=== PATIENT | male | born 1960 | race Caucasian/White ===

== ENCOUNTER → 2018-09-08 12:15 | Emergency (ER) | payer BC ==
[2018-09-08] MEDS: LABETALOL HCL 100 MG/20 ML VIAL IV ×3 (11:39→12:08)
[2018-09-08 11:46] LABS: BASO % 0.5 % (0.0-1.0); EOS # 0.2 10^3/uL (0.0-0.50); EOS % 2.3 % (0.0-3.0); HEMATOCRIT 39.7 % (42.0-52.0); HEMOGLOBIN 13.7 g/dl (13.5-17.5); IMMATURE GRANULOCYTE % 0.4 % (0-3.0); LYMPH # 1.4 10^3/uL (1.5-4.5); LYMPH % 18.5 % (24.0-44.0); MEAN CORPUSCULAR HEMOGLOBIN 34.5 pg (27.0-33.0); MEAN CORPUSCULAR HGB CONC 34.5 g/dl (32.0-36.5); MONO # 0.9 10^3/uL (0.0-0.8); MONO % 12.2 % (0.0-5.0); NEUTROPHILS # 4.8 10^3/uL (1.8-7.7); NEUTROPHILS % 66.1 % (36.0-66.0); PLATELET COUNT, AUTOMATED 178 10^3/uL (150-450); RED BLOOD COUNT 3.97 10^6/uL (4.30-6.10); RED CELL DISTRIBUTION WIDTH 12.2 % (11.5-14.5); WHITE BLOOD COUNT 7.3 10^3/uL (4.0-10.0)
[2018-09-08 11:48] LABS: BEDSIDE GLUCOSE 86 MG/DL (70-105)
[2018-09-08 11:57] LABS: INR 0.94; PROTHROMBIN TIME 12.6 SECONDS (12.1-14.4)
[2018-09-08 11:58] LABS: PARTIAL THROMBOPLASTIN TIME 27.1 SECONDS (25.4-37.6)
[2018-09-08 12:12] LABS: ANION GAP 6 MEQ/L (8-16); BLOOD UREA NITROGEN 23 MG/DL (7-18); CALCIUM LEVEL 9.1 MG/DL (8.5-10.1); CARBON DIOXIDE LEVEL 29 MEQ/L (21-32); CHLORIDE LEVEL 105 MEQ/L (98-107); CPK CREATINE PHOSPHOKINASE 80 U/L (39-308); CREATININE FOR GFR 1.18 MG/DL (0.70-1.30); GLOMERULAR FILTRATION RATE > 60.0 (>56); GLUCOSE, FASTING 88 MG/DL (70-100); MB/CK RELATIVE INDEX 2.25 (< OR =4); POTASSIUM SERUM 4.4 MEQ/L (3.5-5.1); SODIUM LEVEL 140 MEQ/L (136-145); TROPONIN I < 0.02 NG/ML (< 0.10)
== END | disposition short-term general hospital (02) ==
LOC: M ED 12:15
DX: I62.9 Nontraumatic intracranial hemorrhage, unspecified (principal); I10 Essential (primary) hypertension; Z79.899 Other long term (current) drug therapy; F17.210 Nicotine dependence, cigarettes, uncomplicated
CPT/HCPCS: 71045

== ENCOUNTER → 2018-10-04 | Outpatient (REF) | payer BC | LOC: M LAB REF 18:03 | DX: C44.329 Squamous cell carcinoma of skin of other parts of face (principal); C44.619 Basal cell carcinoma of skin of left upper limb, including shoulder; D04.39 Carcinoma in situ of skin of other parts of face | CPT/HCPCS: 88305 ==

== ENCOUNTER → 2018-10-18 | Outpatient (CLI) | payer BC | LOC: M PLARAD 10:15 | DX: R22.0 Localized swelling, mass and lump, head (principal) | CPT/HCPCS: 78816 ==

== ENCOUNTER 2018-10-26 08:26 | Day surgery (SDC) | payer BC ==
[~2018-10-26] VITALS: Ht 182.9 cm; Wt 107.5 kg
[~2018-10-26 08:26] MED LIST: AMLO10TA4 PO; ATOR40TA75 PO; GARL10CA2 PO; HYDR25OIN TOP; HYDR25TAB PO; IBUP200T45 PO; KETO2CR TOP; LISI-538 PO; MULT1TAB10 PO; NICO21DI31 TOP; NS 1,000 ML IV ONE; PANT40TA3 PO; PRIL20TA2 PO; VITA-176 PO; [UNRECOGNIZED DRUG - CODE] PO; beet root
--- NOTE | 2018-10-26 09:57 | ROOR ---
Patient Name: Juan Francisco Roa Procedure Date: 10/26/2018 9:29 AM Date of : 1960 Age: 58 Room: [facility] Gender: Male Note Status: Finalized Procedure: Colonoscopy Indications: Screening for colorectal malignant neoplasm Providers: Keon To DO Referring MD: Nathalie Barragan DO Requesting Provider: Medicines: Propofol per Anesthesia Complications: No immediate complications. Procedure: Pre-Anesthesia Assessment: - Prior to the procedure, a History and Physical was performed, and patient medications and allergies were reviewed. The patient is competent. The risks and benefits of the procedure and the sedation options and risks were discussed with the patient. All questions were answered and informed consent was obtained. Patient identification and proposed procedure were verified by the physician, the nurse, the anesthesiologist and the senior pharmacy technician in the endoscopy suite. Mental Status Examination: alert and oriented. Airway Examination: normal oropharyngeal airway and neck mobility. Respiratory Examination: clear to auscultation. CV Examination: normal. Prophylactic Antibiotics: The patient does not require prophylactic antibiotics. Prior Anticoagulants: The patient has taken no previous anticoagulant or antiplatelet agents. ASA Grade Assessment: II - A patient with mild systemic disease. After reviewing the risks and benefits, the patient was deemed in satisfactory condition to undergo the procedure. The anesthesia plan was to use monitored anesthesia care (MAC). Immediately prior to administration of medications, the patient was re-assessed for adequacy to receive sedatives. The heart rate, respiratory rate, oxygen saturations, blood pressure, adequacy of pulmonary ventilation, and response to care were monitored throughout the procedure. The physical status of the patient was re-assessed after the procedure. The Colonoscope was introduced through the anus and advanced to the cecum, identified by appendiceal orifice and ileocecal valve. The colonoscopy was performed without difficulty. The patient tolerated the procedure well. Findings: The perianal exam findings include non-thrombosed internal hemorrhoids and internal hemorrhoids that prolapse with straining, but spontaneously regress to the resting position (Grade II). Four hyperplastic polyps were found in the sigmoid colon, descending colon and cecum. The polyps were less than 5 mm in size. These polyps were removed with a jumbo cold forceps. Resection and retrieval were complete. Estimated blood loss was minimal. The exam was otherwise without abnormality on direct and retroflexion views. Impression: - Non-thrombosed internal hemorrhoids and internal hemorrhoids that prolapse with straining, but spontaneously regress to the resting position (Grade II) found on perianal exam. - Four less than 5 mm polyps in the sigmoid colon, in the descending colon and in the cecum, removed with a jumbo cold forceps. Resected and retrieved. - The examination was otherwise normal on direct and retroflexion views. Recommendation: - Patient has a contact number available for emergencies. The signs and symptoms of potential delayed complications were discussed with the patient. Return to normal activities tomorrow. Written discharge instructions were provided to the patient. - Telephone my office for pathology results in 1 week. - Return to my office PRN. - Repeat colonoscopy in 5-10 years for surveillance based on pathology results. Keon To DO 10/26/2018 9:56:42 AM This report has been signed electronically. Number of Addenda: 0 Note Initiated On: 10/26/2018 9:29 AM Estimated Blood Loss: Estimated blood loss was minimal.
[2018-10-26 10:21] VITALS: BP 149/88
== END 2018-10-26 10:32 | disposition home or self-care (01) ==
LOC: M OPP 08:26
PROVIDERS: ATTEND Surgery
DX: Z12.11 Encounter for screening for malignant neoplasm of colon (principal); K64.1 Second degree hemorrhoids; K63.5 Polyp of colon; D12.4 Benign neoplasm of descending colon; D12.0 Benign neoplasm of cecum; I10 Essential (primary) hypertension; E78.00 Pure hypercholesterolemia, unspecified; R90.0 Intracranial space-occupying lesion found on diagnostic imaging of central nervous system; R59.9 Enlarged lymph nodes, unspecified; M54.9 Dorsalgia, unspecified; Z79.899 Other long term (current) drug therapy; Z86.73 Personal history of transient ischemic attack (TIA), and cerebral infarction without residual deficits; Z85.828 Personal history of other malignant neoplasm of skin

== ENCOUNTER → 2018-11-01 | Outpatient (REF) | payer BC ==
[~2018-11-01] MED LIST changes: -NS 1,000 ML IV ONE
== END ==
LOC: M SFHCPLAZ 11:54
PROVIDERS: ATTEND Dermatology
DX: C44.301 Unspecified malignant neoplasm of skin of nose (principal); C44.509 Unspecified malignant neoplasm of skin of other part of trunk; C44.602 Unspecified malignant neoplasm of skin of right upper limb, including shoulder

== ENCOUNTER → 2018-11-22 | Outpatient (CLI) | payer BC ==
[~2018-11-22] MED LIST changes: -AMLO10TA4 PO; +AMLO10TA5 PO; +PROHANCE 279.3MG/ML 15ML VIAL (A9576) As Ordered ONE; +PROHANCE 279.3MG/ML 5ML VIAL (A9576) As Ordered ONE
--- NOTE | 2018-11-22 11:57 | REP ---
MR BRAIN WITHOUT AND WITH CONTRAST: HISTORY: Brain hemorrhage. COMPARISON: CT 09/08/2018. A small focus of mixed decreased and increased signal intensity on T1 and T2-weighted images is present in the posterior right parietal lobe. This represents hemosiderin and methemoglobin secondary to a small intraparenchymal hematoma. There is no surrounding edema or mass effect. Scattered punctate areas of increased signal intensity on T2-weighted images are present in the periventricular and subcortical white matter. This represents small vessel ischemic disease. There is no acute intraparenchymal hemorrhage, infarct, mass, or midline shift. A 7 mm pineal cyst is present. There is no abnormal enhancement. The ventricular system and cortical sulci are dilated consistent with minimal volume loss. There is no extracerebral collection. Minimal mucosal thickening is present in the maxillary sinuses. There is a defect in the soft tissue overlying the right frontal bone. IMPRESSION: 1. Old small right parietal lobe intraparenchymal hematoma. 2. Small vessel ischemic disease. 3. Minimal volume loss. Electronically Signed by Justin Hoskins MD 11/22/2018 11:58 A
== END ==
LOC: M RAD 08:48
PROVIDERS: ATTEND Internal Medicine Medical Oncology
DX: I61.9 Nontraumatic intracerebral hemorrhage, unspecified (principal); I67.82 Cerebral ischemia; R22.0 Localized swelling, mass and lump, head
CPT/HCPCS: 70553; A9576

== ENCOUNTER → 2019-01-17 | Outpatient (REF) | payer BC ==
[~2019-01-17] MED LIST changes: -PROHANCE 279.3MG/ML 15ML VIAL (A9576) As Ordered ONE; -PROHANCE 279.3MG/ML 5ML VIAL (A9576) As Ordered ONE
== END ==
LOC: M SFHCPLAZ 17:22
PROVIDERS: ATTEND Dermatology
DX: C44.619 Basal cell carcinoma of skin of left upper limb, including shoulder (principal); D04.62 Carcinoma in situ of skin of left upper limb, including shoulder

== ENCOUNTER → 2019-01-31 | Outpatient (REF) | payer BC | LOC: M SFHCPLAZ 17:50 | PROVIDERS: ATTEND Dermatology | DX: C44.612 Basal cell carcinoma of skin of right upper limb, including shoulder (principal); C44.529 Squamous cell carcinoma of skin of other part of trunk; L82.1 Other seborrheic keratosis ==

== ENCOUNTER → 2019-02-28 | Outpatient (REF) | payer BC | LOC: M SFHCPLAZ 17:50 | PROVIDERS: ATTEND Dermatology | DX: D48.5 Neoplasm of uncertain behavior of skin (principal) ==

== ENCOUNTER 2020-01-09 10:26 | Emergency (ER) | payer OTHER, BC, MEDICAID ==
[~2020-01-09] VITALS: Ht 182.9 cm; Wt 112.5 kg
[2020-01-09] MEDS ORDERED: HYDR-3363 (10:36)
--- NOTE | 2020-01-09 11:02 | REP ---
Left hand series: Four views. History: Crush injury left hand. Findings: Four views left hand demonstrate a dressing overlying the long finger. There is mild spurring at the 3rd MCP articulation. There is some osteoarthritic spurring at the DIP joints of the long and small fingers. No fracture is seen. No opaque foreign body is noted. There is some clothing artifact at the wrist. Impression: Osteoarthritic changes. Soft tissue swelling about the long finger. No fracture or opaque foreign body seen. Electronically Signed by Ramesh Lovelace MD 01/09/2020 10:53 A
[2020-01-09] MEDS ORDERED: IBUPROFEN 800 MG TAB PO ONE (11:45)
[2020-01-09] MEDS ORDERED: ADACEL/BOOSTRIX VACCINE (DIPHTH/PERTUSS/ACELL/TETANUS)0.5ML SYR (90715) IM ONE (11:45)
[2020-01-09 12:20] VITALS: BP 130/76
== END 2020-01-09 12:20 | disposition home or self-care (01) ==
LOC: M ED 10:26
DX: S67.191A Crushing injury of left index finger, initial encounter (principal); S67.193A Crushing injury of left middle finger, initial encounter; W23.0XXA Caught, crushed, jammed, or pinched between moving objects, initial encounter; Y92.59 Other trade areas as the place of occurrence of the external cause; Y93.89 Activity, other specified; Y99.8 Other external cause status; E78.5 Hyperlipidemia, unspecified; K21.9 Gastro-esophageal reflux disease without esophagitis; F17.210 Nicotine dependence, cigarettes, uncomplicated; Z79.899 Other long term (current) drug therapy

== ENCOUNTER → 2020-07-31 | Outpatient (REF) | payer OTHER, BC, MEDICAID ==
[~2020-07-31] MED LIST changes: -AMLO10TA5 PO; +AMLO1TAB25 PO; +HYDR-3363; +PANT40TA29 PO; -PANT40TA3 PO
== END ==
LOC: M LAB REF 09:16
PROVIDERS: ATTEND Dermatology
DX: C44.622 Squamous cell carcinoma of skin of right upper limb, including shoulder (principal)

== ENCOUNTER → 2020-12-18 | Outpatient (REF) | payer BC, MEDICAID, OTHER ==
[~2020-12-18] MED LIST changes: +HYDR-3490 PO; -HYDR25TAB PO; -LISI-538 PO; +LISI20TA33 PO; +NICO1DIS12 TOP; -NICO21DI31 TOP
== END ==
LOC: M LAB REF 18:46
PROVIDERS: ATTEND Physician Assistant
DX: C44.519 Basal cell carcinoma of skin of other part of trunk (principal)

== ENCOUNTER → 2020-12-30 | Outpatient (CLI) | payer OTHER ==
--- NOTE | 2021-01-01 10:12 | SLEEPCENT ---
NOCTURNAL POLYSOMNOGRAPHY DATE: 12/30/2020 ORDERED BY: FRANK Kang Nocturnal polysomnography was performed for evaluation of sleep physiology in this patient with a history of excessive somnolence and nonrestorative sleep. 8 hours and 5 minutes of data were reviewed. There were 345 minutes of sleep identified. Sleep latency was prolonged at 23 minutes. REM latency was short at 7.5 minutes. Sleep architecture showed fragmentation and overall sleep efficiency was 72.1%. The electrocardiogram showed a sinus rhythm with an average heart rate of 80 beats per minute. EEG showed normal waveforms for wake and sleep. There were 125 respiratory events identified of 10 seconds in duration or greater for an apnea-hypopnea index of 21.7. The events were associated with oxygen desaturations into the low 80s. Having clearly identified the obstructive sleep apnea syndrome early in testing, the study was stopped shortly before midnight for the application of pressure therapy. The patient was fit with a ResMed AirFit F20 full face mask of large size, 4 cm of water pressure was applied to the circuit and the lights were again extinguished. For the remaining hours of testing pressure titration was performed. The patient's sleep architecture improved substantially. Optimal CPAP pressure was 11 cm with which, the patient slept through REM without respiratory event or oxygen desaturations. IMPRESSION: Obstructive sleep apnea syndrome (G47.33), apnea-hypopnea index 21.7. RECOMMENDATION: Nightly use of pressure therapy 11 cm of water.
== END ==
LOC: M SLEEP 20:00
PROVIDERS: ATTEND Nurse Practitioner Family
DX: G47.33 Obstructive sleep apnea (adult) (pediatric) (principal)

== ENCOUNTER → 2021-04-15 | Outpatient (REF) | payer OTHER ==
[2021-04-15 12:49] LABS: BASO % 0.5 % (0.0-1.0); EOS # 0.1 10^3/uL (0.0-0.5); EOS % 1.4 % (0.0-3.0); HEMATOCRIT 36.5 % (42.0-52.0); HEMOGLOBIN 12.2 g/dl (13.5-17.5); LYMPH # 1.4 10^3/uL (1.5-5.0); LYMPH % 18.9 % (24.0-44.0); MEAN CORPUSCULAR HEMOGLOBIN 31.8 pg (27.0-33.0); MEAN CORPUSCULAR HGB CONC 33.4 g/dl (32.0-36.5); MEAN CORPUSCULAR VOLUME 95.1 fl (80.0-96.0); NEUTROPHILS # 4.9 10^3/uL (1.5-8.5); NEUTROPHILS % 65.7 % (36.0-66.0); PLATELET COUNT, AUTOMATED 296 10^3/uL (150-450); RED BLOOD COUNT 3.84 10^6/uL (4.30-6.10); WHITE BLOOD COUNT 7.4 10^3/uL (4.0-10.0)
[2021-04-15 13:17] LABS: BILIRUBIN,TOTAL 0.5 MG/DL (0.2-1.0); CALCIUM LEVEL 9.1 MG/DL (8.5-10.1); CHOLESTEROL RISK RATIO 2.234 (<5); CREATININE FOR GFR 1.33 MG/DL (0.70-1.30); GLOMERULAR FILTRATION RATE 58.6 (>56); POTASSIUM SERUM 4.4 MEQ/L (3.5-5.1); TOTAL PROTEIN 7.4 GM/DL (6.4-8.2)
== END ==
LOC: M SFHCADAM 08:16
PROVIDERS: ATTEND Family Medicine
DX: Z00.00 Encounter for general adult medical examination without abnormal findings (principal)

== ENCOUNTER → 2021-05-15 | Outpatient (CLI) | payer OTHER ==
--- NOTE | 2021-05-15 14:03 | REP ---
INDICATION: WHEEZE COMPARISON: 09/08/2018 TECHNIQUE: PA and lateral. FINDINGS: The mediastinum and cardiac silhouette are normal. The lung subramanian are clear and without acute consolidation, effusion, or pneumothorax. The skeletal structures are intact and normal. IMPRESSION: No acute cardiopulmonary process. <Electronically signed by Brent Islas > 05/15/21 [id number]
--- NOTE | 2021-05-15 14:06 | REP ---
INDICATION: LOW BACK PAIN. COMPARISON: None. FINDINGS: There is mild posterior disc space narrowing at every level. There is a mild grade 1 superior and plate anterior compression deformity involving L1. There is a minimal grade 1 L4 upon L5 spondylolisthesis. Hypertrophic degenerative facet joint changes are present at every level bilaterally particularly L4-5 L5-S1. There is no evidence of spondylolysis. The pedicles are intact bilaterally. There is left-sided marginal osteophytosis seen at the L3-4 level. Rather advanced degenerative changes are seen involving the imaged portion of the thoracic spine. IMPRESSION: Chronic changes as described above. <Electronically signed by Kt Schumacher > 05/15/21 [id number]
== END ==
LOC: M ADAMS 13:35
PROVIDERS: ATTEND Family Medicine
DX: R06.2 Wheezing (principal); M54.5 Low back pain

== ENCOUNTER → 2021-08-20 | Outpatient (REF) | payer OTHER | LOC: M LAB REF 17:25 | PROVIDERS: ATTEND Internal Medicine Nephrology | DX: N18.31 Chronic kidney disease, stage 3a (principal); E83.42 Hypomagnesemia ==

== ENCOUNTER → 2021-08-21 | Outpatient (CLI) | payer OTHER ==
[~2021-08-21] MED LIST changes: +ISOVUE-370 76% 100ML VIAL As Ordered ONE
--- NOTE | 2021-08-21 09:05 | REPVR ---
PROCEDURE INFORMATION: Exam: CT Neck With Contrast Exam date and time: 08/21/2021 8:39 AM Age: 61 years old Clinical indication: Pain; Other: Swelling; Additional info: Localized swelling PT has CT 1st and US 2nd TECHNIQUE: Imaging protocol: Computed tomography images of the neck with contrast. Radiation optimization: All CT scans at this facility use at least one of these dose optimization techniques: automated exposure control; mA and/or kV adjustment per patient size (includes targeted exams where dose is matched to clinical indication); or iterative reconstruction. Contrast material: ISOVUE 370; Contrast volume: 50 ml; Contrast route: INTRAVENOUS (IV); COMPARISON: PT PET/CT Whole body 10/18/2018 11:55 AM FINDINGS: Brain: Diffuse involutional changes in the brain for age. Nasopharynx: Unremarkable. Dental: There are multiple missing, carious, and broken teeth with some periapical lucencies. Dental consult is recommended. Oropharynx: Unremarkable. No significant tonsillar enlargement. Hypopharynx: Unremarkable. Larynx: Unremarkable. Normal epiglottis. Retropharyngeal space: Unremarkable. Submandibular/Parotid glands: Normal. Glands are normal in size. Thyroid: No thyroid lesion. Lymph nodes: No confluent lymphadenopathy. Trachea: Visualized trachea is unremarkable. Lungs: The included lungs are clear. Bones/joints: Age-appropriate degenerative changes along the spine without acute fracture. Vasculature: Atherosclerotic changes of the carotids are mildly advanced for age and ultrasound follow-up is recommended. No venous thrombus. Soft tissues: No focal soft tissue swelling. IMPRESSION: 1. No dominant mass or confluent lymphadenopathy. 2. No focal soft tissue swelling. Electronically signed by: Kirby Cruz On 08/21/2021 09:05:32 AM
--- NOTE | 2021-08-21 09:38 | REP ---
INDICATION: LOCALIZED SWELLING PT HAS CT 1ST AND US 2ND COMPARISON: None TECHNIQUE: Axial contrast enhanced images from the thoracic inlet to the upper abdomen with coronal and sagittal reformations using 100 ml Isovue 370 intravenous contrast material. This CT examination was performed using the following dose reduction techniques: Automated exposure control, adjustment of mA and/or kv according to the patient's size, and use of iterative reconstruction technique. FINDINGS: The lung subramanian are well aerated and demonstrate scattered chronic interstitial changes along with multiple partially calcified mediastinal and bilateral hilar lymph nodes suggesting prior granulomatous disease. No acute consolidation, suspicious nodule or mass. No effusion. No pneumothorax. Tracheobronchial tree is patent. No acute adenopathy. Further evaluation of the mediastinum demonstrates atherosclerotic changes to the thoracic aorta and coronary arteries without aortic aneurysm or dissection. No cardiomegaly or pericardial effusion. Surrounding musculoskeletal structures without acute osseous abnormality. Limited upper abdomen demonstrates known complete atrophy to the right kidney. IMPRESSION: Chronic changes likely related to prior granulomatous disease. No acute mediastinal or pleuroparenchymal process appreciated. <Electronically signed by Brent Islas > 08/21/21 0913
--- NOTE | 2021-08-21 09:56 | REP ---
INDICATION: CHRONIC KIDNEY DISEASE STAGE 3A CT 1ST US 2ND COMPARISON: None TECHNIQUE: Real time barriga scale ultrasound examination using curved array transducer followed by color Doppler evaluation of the renal vasculature. FINDINGS: Right kidney is not visualized and consistent with complete atrophic changes as identified on CT dated 08/21/21. Left kidney is enlarged and otherwise normal in appearance without hydronephrosis measuring 16.9 x 5.0 x 5.1 cm. Color Doppler evaluation. Peak aortic velocity: 91.6 cm/sec LEFT KIDNEY Renal arterial velocity: 117.1 centimeters/second Renal-aortic ratio: 1.3 Intrarenal resistive indices: 0.70-0.75 Intrarenal acceleration times: 0.025-0.039 IMPRESSION: 1. Left kidney appears relatively normal. 2. Doppler interegation without sonographic evidence for renal arterial stenosis. <Electronically signed by Brent Islas > 08/21/21 0952
== END ==
LOC: M RAD 08:10
PROVIDERS: ATTEND Internal Medicine Nephrology
DX: I15.0 Renovascular hypertension (principal); R22.1 Localized swelling, mass and lump, neck; J44.9 Chronic obstructive pulmonary disease, unspecified; I70.1 Atherosclerosis of renal artery
CPT/HCPCS: 70491; 71260; 76775; 93975; Q9967

== ENCOUNTER → 2022-02-12 | Outpatient (REF) | payer OTHER ==
[~2022-02-12] MED LIST changes: -ISOVUE-370 76% 100ML VIAL As Ordered ONE
== END ==
LOC: M SFHCDERM 14:14
PROVIDERS: ATTEND Physician Assistant
DX: C44.622 Squamous cell carcinoma of skin of right upper limb, including shoulder (principal)

== ENCOUNTER → 2022-05-07 | Outpatient (REF) | payer OTHER | LOC: M SFHCDERM 19:08 | PROVIDERS: ATTEND Physician Assistant | DX: L90.5 Scar conditions and fibrosis of skin (principal) ==

== ENCOUNTER → 2022-09-17 | Outpatient (REF) | payer OTHER ==
[2022-09-17 13:36] LABS: BASO % 0.6 % (0.0-1.0); EOS # 0.1 10^3/uL (0.0-0.5); EOS % 2.2 % (0.0-3.0); HEMATOCRIT 42.9 % (42.0-52.0); HEMOGLOBIN 14.3 g/dl (13.5-17.5); LYMPH # 1.9 10^3/uL (1.5-5.0); LYMPH % 35.3 % (24.0-44.0); MEAN CORPUSCULAR HEMOGLOBIN 34.2 pg (27.0-33.0); MEAN CORPUSCULAR HGB CONC 33.3 g/dl (32.0-36.5); MEAN CORPUSCULAR VOLUME 102.6 fl (80.0-96.0); MONO # 0.7 10^3/uL (0.0-0.8); MONO % 12.7 % (2.0-8.0); NEUTROPHILS # 2.6 10^3/uL (1.5-8.5); NEUTROPHILS % 48.5 % (36.0-66.0); PLATELET COUNT, AUTOMATED 203 10^3/uL (150-450); RED BLOOD COUNT 4.18 10^6/uL (4.30-6.10); WHITE BLOOD COUNT 5.4 10^3/uL (4.0-10.0)
[2022-09-17 14:31] LABS: ALBUMIN 3.5 GM/DL (3.2-5.2); ALT/SGPT 29 U/L (12-78); BILIRUBIN,TOTAL 0.3 MG/DL (0.2-1.0); BLOOD UREA NITROGEN 27 MG/DL (7-18); CALCIUM LEVEL 8.6 MG/DL (8.8-10.2); CARBON DIOXIDE LEVEL 29 MEQ/L (21-32); CHLORIDE LEVEL 104 MEQ/L (98-107); CHOLESTEROL LEVEL 210 MG/DL (<200); CREATININE FOR GFR 1.18 MG/DL (0.70-1.30); FREE T4 0.93 NG/DL (0.76-1.46); GLOMERULAR FILTRATION RATE > 60.0 (>49); GLUCOSE, FASTING 84 MG/DL (70-100); HDL CHOLESTEROL 85 MG/DL (>40); LDL CHOLESTEROL 94 MG/DL (<100); NON-HDL-C 125 MG/DL; POTASSIUM SERUM 4.5 MEQ/L (3.5-5.1); SODIUM LEVEL 141 MEQ/L (136-145); THYROID STIMULATING HORMONE 0.762 uIU/ML (0.358-3.740); TRIGLYCERIDES LEVEL 154 MG/DL (<150)
== END ==
LOC: M SFHCADAM 08:40
PROVIDERS: ATTEND Family Medicine
DX: Z00.00 Encounter for general adult medical examination without abnormal findings (principal)

== ENCOUNTER 2023-06-12 04:29 | Emergency (ER) | payer MEDICAID, OTHER ==
[~2023-06-12] VITALS: Ht 182.9 cm; Wt 109.6 kg
[2023-06-12 06:08] LABS: BASO % 0.3 % (0.0-1.0); HEMATOCRIT 38.2 % (42.0-52.0); LYMPH % 16.7 % (24.0-44.0); MEAN CORPUSCULAR HEMOGLOBIN 33.2 pg (27.0-33.0); MEAN CORPUSCULAR VOLUME 97.7 fl (80.0-96.0); MONO # 1.2 10^3/uL (0.0-0.8); MONO % 20.7 % (2.0-8.0); NEUTROPHILS # 3.7 10^3/uL (1.5-8.5); PLATELET COUNT, AUTOMATED 166 10^3/uL (150-450); RED BLOOD COUNT 3.91 10^6/uL (4.30-6.10)
[2023-06-12] MEDS ORDERED: ISOVUE-370 76% 100ML VIAL As Ordered ONE (06:12)
[2023-06-12 07:09] LABS: CK-MB VALUE MASS < 1.0 NG/ML (<3.6)
[2023-06-12 07:11] LABS: BLOOD UREA NITROGEN 22 MG/DL (9-23); CALCIUM LEVEL 8.3 MG/DL (8.3-10.6); CARBON DIOXIDE LEVEL 27 MMOL/L (20-31); CHLORIDE LEVEL 95 MMOL/L (98-107); CREATININE FOR GFR 1.14 MG/DL (0.70-1.30); GLOMERULAR FILTRATION RATE > 60.0 (>49); GLUCOSE, FASTING 98 MG/DL (74-106); INR 0.91; POTASSIUM SERUM 3.8 MMOL/L (3.5-5.1); PROTHROMBIN TIME 12.4 SECONDS (12.5-14.5); SODIUM LEVEL 133 MMOL/L (136-145)
[2023-06-12 07:12] LABS: PARTIAL THROMBOPLASTIN TIME 25.6 SECONDS (24.8-34.2)
[2023-06-12 07:13] LABS: CPK CREATINE PHOSPHOKINASE 40 U/L (46-171)
[2023-06-12 07:14] VITALS: TEMP 99.7
[2023-06-12] MEDS ORDERED: ACETAMINOPHEN 325 MG TAB PO ONE (07:55)
[2023-06-12] MEDS ORDERED: METOPROLOL TART 50 MG TAB PO ONE (07:55)
[2023-06-12 09:06] VITALS: BP 164/90
[2023-06-12] MEDS ORDERED: NORT10CA2 PO ×2 (13:58→14:18)
[2023-06-12 14:00] VITALS: BP 141/71
[2023-06-12 14:15] VITALS: O2SAT 97
[2023-06-12 14:32] LABS: C REACTIVE PROTEIN QUANTITATIV 0.8 MG/DL (<1.0)
== END 2023-06-12 14:46 | disposition home or self-care (01) ==
LOC: M ED 04:29
DX: H55.09 Other forms of nystagmus (principal); I67.1 Cerebral aneurysm, nonruptured; I10 Essential (primary) hypertension; K21.9 Gastro-esophageal reflux disease without esophagitis
CPT/HCPCS: 36415; 70450; 70496; 70498; 70544; 70551; 71045; 80047; 80048; 82525; 82550; 82553; 82607; 84155; 84165; 84425; 85025; 85610; 85730; 86140; 93005; 93041; 94760; 99285; Q9967

== ENCOUNTER 2023-09-19 05:09 | Emergency (ER) | payer OTHER ==
[~2023-09-19] VITALS: Ht 182.9 cm; Wt 109.1 kg
[~2023-09-19 05:09] MED LIST changes: +NORT10CA2 PO
[2023-09-19] MEDS ORDERED: ACETAMINOPHEN *IV* 1,000 MG in IV 1 EA IV ONE (06:20)
[2023-09-19] MEDS ORDERED: NS 1,000 ML IV ONE (06:20)
[2023-09-19] MEDS ORDERED: METOCLOPRAMIDE INJ 10MG/2ML VIAL IV ONE (06:20)
[2023-09-19] MEDS ORDERED: METO50TA7 (08:54)
[2023-09-19 08:57] VITALS: BP 146/94; TEMP 97.2; O2SAT 97
== END 2023-09-19 09:13 | disposition home or self-care (01) ==
LOC: EDBD 05:09 → M ED 05:09
DX: S09.90XA Unspecified injury of head, initial encounter (principal); V47.6XXA Car passenger injured in collision with fixed or stationary object in traffic accident, initial encounter; I10 Essential (primary) hypertension; E78.5 Hyperlipidemia, unspecified; Z86.73 Personal history of transient ischemic attack (TIA), and cerebral infarction without residual deficits; K21.9 Gastro-esophageal reflux disease without esophagitis; F40.240 Claustrophobia; Z79.899 Other long term (current) drug therapy
CPT/HCPCS: 70450; 72125; 96361; 96365; 96366; 96375; 99284; J0131; J2765

== ENCOUNTER → 2023-09-22 | Outpatient (CLI) | payer OTHER ==
[~2023-09-22] MED LIST changes: +METO50TA7
== END ==
LOC: M WHC 11:04
PROVIDERS: ATTEND Physician Assistant
DX: I89.0 Lymphedema, not elsewhere classified (principal)

== ENCOUNTER → 2024-04-26 | Outpatient (CLI) | payer OTHER | LOC: M RAD 13:19 | PROVIDERS: ATTEND Family Medicine | DX: Z12.2 Encounter for screening for malignant neoplasm of respiratory organs (principal) ==

== ENCOUNTER → 2024-09-06 | Outpatient (CLI) | payer OTHER | LOC: M RAD 09:28 | PROVIDERS: ATTEND Family Medicine | DX: R93.89 Abnormal findings on diagnostic imaging of other specified body structures (principal) ==

== ENCOUNTER → 2024-09-13 | Outpatient (REF) | payer MEDICAID, OTHER | LOC: M SFHCDERM 07:57 | PROVIDERS: ATTEND Physician Assistant | DX: C44.42 Squamous cell carcinoma of skin of scalp and neck (principal); L57.0 Actinic keratosis ==

== ENCOUNTER 2024-11-23 04:09 | Inpatient (IN) | payer MEDICAID, OTHER ==
[~2024-11-23] VITALS: Ht 182.9 cm; Wt 118.8 kg
[~2024-11-23 04:09] MED LIST changes: -HYDR-3363; +HYDR-3363 PO; -METO50TA7; +METO50TA7 PO
[2024-11-23 06:05] LABS: ABG BASE EXCESS 3.6 (-2.0-2.0); ABG HCO3 32.4 MMOL/L (22.0-26.0); ABG O2 SATURATION 96.1 % (95.0-99.0); ABG PARTIAL PRESSURE O2 90.1 mmHg (75.0-100.0); ABG STANDARD HCO3 27.7 MMOL/L. (22.0-26.0); ABG TOTAL CO2 34.6 MMOL/L (23.0-31.0); ABG pH (ARTERIAL) 7.287 UNITS (7.350-7.450)
[2024-11-23 06:08] LABS: ABG PARTIAL PRESSURE CO2 69.5 mmHg (35.0-45.0)
[2024-11-23] MEDS: methylPREDNISolone 125MG 2ML VIAL IV ONE (06:12)
[2024-11-23] MEDS: RACEPINEPHrine 2.25% UD INHAL INH ONE (06:43)
[2024-11-23 06:44] LABS: BASO % 0.3 % (0.0-1.0); EOS # 0.2 10^3/uL (0.0-0.5); HEMATOCRIT 40.6 % (42.0-52.0); HEMOGLOBIN 13.6 g/dl (13.5-17.5); LYMPH # 1.7 10^3/uL (1.5-5.0); MEAN CORPUSCULAR HEMOGLOBIN 32.9 pg (27.0-33.0); MEAN CORPUSCULAR HGB CONC 33.5 g/dl (32.0-36.5); MEAN CORPUSCULAR VOLUME 98.1 fl (80.0-96.0); MONO # 0.9 10^3/uL (0.0-0.8); MONO % 9.1 % (2.0-8.0); NEUTROPHILS # 7.2 10^3/uL (1.5-8.5); PLATELET COUNT, AUTOMATED 281 10^3/uL (150-450); RED BLOOD COUNT 4.14 10^6/uL (4.30-6.10); WHITE BLOOD COUNT 10.1 10^3/uL (4.0-10.0)
[2024-11-23 06:47] LABS: CK-MB VALUE MASS 3.8 NG/ML (<3.6)
[2024-11-23 06:50] LABS: ALBUMIN 3.7 G/DL (3.2-5.2); ALKALINE PHOSPHATASE 97 U/L (40-129); ALT/SGPT 33 U/L (7.0-40); AST/SGOT 26 U/L (<34); BILIRUBIN,DIRECT 0.1 MG/DL (<0.4); BILIRUBIN,TOTAL 0.4 MG/DL (0.3-1.2); BLOOD UREA NITROGEN 21 MG/DL (9-23); CALCIUM LEVEL 9.6 MG/DL (8.3-10.6); CARBON DIOXIDE LEVEL 34 MMOL/L (20-31); CHLORIDE LEVEL 100 MMOL/L (98-107); CPK CREATINE PHOSPHOKINASE 89 U/L (46-171); CREATININE FOR GFR 0.97 MG/DL (0.70-1.30); GLOMERULAR FILTRATION RATE > 60.0 (>49); GLUCOSE, FASTING 103 MG/DL (74-106); MB/CK RELATIVE INDEX 4.26 (< OR =4); POTASSIUM SERUM 4.4 MMOL/L (3.5-5.1); SODIUM LEVEL 138 MMOL/L (136-145); TOTAL PROTEIN 7.5 G/DL (5.7-8.2)
[2024-11-23] MEDS ORDERED: ISOVUE-370 76% 100ML VIAL As Ordered ONE (07:27)
[2024-11-23 08:00] LABS: CK-MB VALUE MASS 3.6 NG/ML (<3.6); MB/CK RELATIVE INDEX 3.78 (< OR =4)
[2024-11-23] MEDS: GLYCOPYRROLATE INJ 0.2 MG/ML 2 ML VIAL NEB SCH (08:00)
[2024-11-23] MEDS: FORMOTEROL FUMARATE 20 MCG/2 ML INHALATION SOLUTION (PERFOROMIST) INH SCH (08:00)
[2024-11-23 08:37] LABS: ABG BASE EXCESS 4.3 (-2.0-2.0); ABG HCO3 32.8 MMOL/L (22.0-26.0); ABG O2 SATURATION 96.1 % (95.0-99.0); ABG PARTIAL PRESSURE O2 93.9 mmHg (75.0-100.0); ABG STANDARD HCO3 28.3 MMOL/L. (22.0-26.0); ABG TOTAL CO2 34.9 MMOL/L (23.0-31.0); ABG pH (ARTERIAL) 7.308 UNITS (7.350-7.450)
[2024-11-23] MEDS: cefTRIAXone SOD 1 GM in DEXTROSE 5% (D5W) ADV/MINI-BAG 50 ML IV ONE (09:37)
[2024-11-23] MEDS: IPRATROPIUM 0.5MG/ALBUTEROL 2.5MG INH SOL UD 3ML (DUONEB) NEB SCH (09:44)
[2024-11-23] MEDS ORDERED: NORT10CA2 PO (09:54)
[2024-11-23] MEDS ORDERED: MULT-40 PO (09:54)
[2024-11-23] MEDS ORDERED: HOME MED LIST COMPLETE! XX SCH (10:00)
[2024-11-23] MEDS ORDERED: LORazepam 2 MG TAB PO PRN (10:40)
[2024-11-23] MEDS: AZITHROMYCIN INJ 500 MG, VIAL MATE ADAPTER 1 EACH in D5W 250 ML IV ONE (10:50)
[2024-11-23 14:07] LABS: VENOUS BASE EXCESS 4.6 (-2.0-2.0); VENOUS HCO3 33.4 MMOL/L (23.0-27.0); VENOUS O2 SATURATION 75.3 % (60.0-80.0); VENOUS PARTIAL PRESSURE CO2 68.1 mmHg (38.0-50.0); VENOUS PARTIAL PRESSURE O2 39.7 mmHg (30.0-50.0); VENOUS PH 7.308 UNITS (7.330-7.430); VENOUS STANDARD HCO3 27.9 MMOL/L; VENOUS TOTAL CO2 35.5 MMOL/L (24.0-28.0)
[2024-11-23 15:45] VITALS: BP 150/74; TEMP 98; O2SAT 96
[2024-11-23 16:00] VITALS: BP 150/74
[2024-11-23] MEDS: MULTIVITAMINS/MINERALS THERAP 1 TAB PO SCH (16:25)
[2024-11-23] MEDS: FOLIC ACID 1MG TAB PO SCH (16:25)
[2024-11-23] MEDS: THIAMINE 100 MG TAB PO SCH (16:26)
[2024-11-23 20:08] VITALS: BP 141/65; TEMP 97.8; O2SAT 99
[2024-11-23 23:51] VITALS: BP 138/74; TEMP 98.2; O2SAT 94
[2024-11-24] VITALS (8 sets, daily range): BP systolic 134–158; BP diastolic 81–99; TEMP 97.7–98.6; O2SAT 92–98
[2024-11-24 04:56] LABS: HEMATOCRIT 38.3 % (42.0-52.0); HEMOGLOBIN 12.8 g/dl (13.5-17.5); MEAN CORPUSCULAR HEMOGLOBIN 32.9 pg (27.0-33.0); MEAN CORPUSCULAR HGB CONC 33.4 g/dl (32.0-36.5); MEAN CORPUSCULAR VOLUME 98.5 fl (80.0-96.0); PLATELET COUNT, AUTOMATED 291 10^3/uL (150-450); RED BLOOD COUNT 3.89 10^6/uL (4.30-6.10); WHITE BLOOD COUNT 15.6 10^3/uL (4.0-10.0)
[2024-11-24 05:42] LABS: BLOOD UREA NITROGEN 33 MG/DL (9-23); CALCIUM LEVEL 9.6 MG/DL (8.3-10.6); CARBON DIOXIDE LEVEL 31 MMOL/L (20-31); CHLORIDE LEVEL 98 MMOL/L (98-107); CREATININE FOR GFR 1.14 MG/DL (0.70-1.30); GLOMERULAR FILTRATION RATE > 60.0 (>49); GLUCOSE, FASTING 111 MG/DL (74-106); POTASSIUM SERUM 4.7 MMOL/L (3.5-5.1); SODIUM LEVEL 139 MMOL/L (136-145)
[2024-11-24] MEDS: IPRATROPIUM 0.5MG/ALBUTEROL 2.5MG INH SOL UD 3ML (DUONEB) NEB SCH (08:13)
[2024-11-24] MEDS: cefTRIAXone SOD 1 GM in DEXTROSE 5% (D5W) ADV/MINI-BAG 50 ML IV SCH (09:26)
[2024-11-24] MEDS: ENOXAPARIN 40MG/0.4ML SYRINGE (J1650 PER 10MG) SC SCH (09:26)
[2024-11-24] MEDS: AZITHROMYCIN 250MG TABLET PO SCH (09:27)
[2024-11-24] MEDS ORDERED: VENTAER INH (11:22)
[2024-11-24] MEDS ORDERED: SPIR1CAP INH (11:22)
[2024-11-24] MEDS: METOPROLOL TART 50 MG TAB PO SCH (12:33)
[2024-11-24] MEDS: PANTOPRAZOLE 40MG TAB (PROTONIX) PO SCH (12:33)
[2024-11-24] MEDS ORDERED: AMOX875T2 PO (13:29)
[2024-11-24] MEDS ORDERED: AZIT-12 PO (13:29)
[2024-11-24] MEDS ORDERED: PRED20TA PO (13:29)
[2024-11-24] MEDS ORDERED: ATORVASTATIN 20 MG TAB PO SCH (21:00)
[2024-11-24] MEDS ORDERED: predniSONE 20 MG TAB PO SCH (21:00)
[2024-11-25] MEDS ORDERED: NORTRIPTYLINE 10 MG CAP PO SCH (09:00)
== END 2024-11-24 15:52 | disposition home or self-care (01) | DRG 133 ==
LOC: M ED 04:09 → M ED INP 10:28 → M ICU 15:38
PROVIDERS: ADMIT Internal Medicine Pulmonary Disease; ATTEND Student in an Organized Health Care Education/Training Program
DX: J96.22 Acute and chronic respiratory failure with hypercapnia (principal); J18.9 Pneumonia, unspecified organism; E87.20 Acidosis, unspecified; J44.0 Chronic obstructive pulmonary disease with (acute) lower respiratory infection; J44.1 Chronic obstructive pulmonary disease with (acute) exacerbation; G47.33 Obstructive sleep apnea (adult) (pediatric); F17.210 Nicotine dependence, cigarettes, uncomplicated; K21.9 Gastro-esophageal reflux disease without esophagitis; I69.198 Other sequelae of nontraumatic intracerebral hemorrhage; I10 Essential (primary) hypertension; H54.62 Unqualified visual loss, left eye, normal vision right eye; Z79.899 Other long term (current) drug therapy

== ENCOUNTER → 2024-12-13 | Outpatient (REF) | payer MEDICAID, OTHER ==
[~2024-12-13] MED LIST changes: +AMOX875T2 PO; +AZIT-12 PO; +MULT-40 PO; +NICO14DI6 TD; +PRED20TA PO; +SPIR1CAP INH; +TIOT18INH INH; +VENTAER INH
== END ==
LOC: M SFHCADAM 10:02
PROVIDERS: ATTEND Family Medicine
DX: Z53.9 Procedure and treatment not carried out, unspecified reason (principal)

== ENCOUNTER 2024-12-15 08:15 | Inpatient (IN) | payer MEDICAID, OTHER ==
[~2024-12-15] VITALS: Ht 185.4 cm; Wt 122.9 kg
[~2024-12-15 08:15] MED LIST changes: -NICO14DI6 TD; -TIOT18INH INH
[2024-12-15] MEDS: NS (Normal Saline) 0.9% 1,000 ML IV SCH (09:00)
[2024-12-15] MEDS: dexAMETHasone 20MG/5ML VIAL IV ONE (09:03)
[2024-12-15] MEDS: ALBUTEROL SULFATE 2.5MG/0.5ML INH NEB SOLN INH ONE (09:09)
[2024-12-15] MEDS: IPRATROPIUM 0.5MG/ALBUTEROL 2.5MG INH SOL UD 3ML (DUONEB) NEB ONE (09:09)
[2024-12-15 09:19] LABS: ABG BASE EXCESS 1.3 (-2.0-2.0); ABG HCO3 27.4 MMOL/L (22.0-26.0); ABG O2 SATURATION 98.9 % (95.0-99.0); ABG PARTIAL PRESSURE CO2 49.3 mmHg (35.0-45.0); ABG PARTIAL PRESSURE O2 146.3 mmHg (75.0-100.0); ABG STANDARD HCO3 25.7 MMOL/L. (22.0-26.0); ABG TOTAL CO2 28.9 MMOL/L (23.0-31.0); ABG pH (ARTERIAL) 7.363 UNITS (7.350-7.450)
[2024-12-15 09:29] LABS: BASO % 0.5 % (0.0-1.0); EOS # 0.4 10^3/uL (0.0-0.5); EOS % 5.1 % (0.0-3.0); HEMOGLOBIN 12.7 g/dl (13.5-17.5); LYMPH # 1.2 10^3/uL (1.5-5.0); LYMPH % 16.4 % (24.0-44.0); MEAN CORPUSCULAR HEMOGLOBIN 33.6 pg (27.0-33.0); MEAN CORPUSCULAR HGB CONC 33.4 g/dl (32.0-36.5); MEAN CORPUSCULAR VOLUME 100.5 fl (80.0-96.0); MONO # 0.9 10^3/uL (0.0-0.8); MONO % 12.4 % (2.0-8.0); NEUTROPHILS # 4.9 10^3/uL (1.5-8.5); NEUTROPHILS % 65.3 % (36.0-66.0); PLATELET COUNT, AUTOMATED 168 10^3/uL (150-450); RED BLOOD COUNT 3.78 10^6/uL (4.30-6.10); WHITE BLOOD COUNT 7.4 10^3/uL (4.0-10.0)
[2024-12-15] MEDS ORDERED: ISOVUE-370 76% 100ML VIAL As Ordered ONE (09:32)
[2024-12-15] MEDS: PIPERACILLIN/TAZOBACTAM SOD 4.5 GM in DEXTROSE 5% (D5W) ADV/MINI-BAG 50 ML IV ONE (09:35)
[2024-12-15 09:52] LABS: ALBUMIN 3.6 G/DL (3.2-5.2); ALKALINE PHOSPHATASE 86 U/L (40-129); ALT/SGPT 37 U/L (7.0-40); AST/SGOT 25 U/L (<34); BILIRUBIN,DIRECT 0.1 MG/DL (<0.4); BILIRUBIN,TOTAL 0.4 MG/DL (0.3-1.2); BLOOD UREA NITROGEN 15 MG/DL (9-23); CALCIUM LEVEL 8.6 MG/DL (8.3-10.6); CARBON DIOXIDE LEVEL 32 MMOL/L (20-31); CHLORIDE LEVEL 98 MMOL/L (98-107); CK-MB VALUE MASS 1.2 NG/ML (<3.6); CPK CREATINE PHOSPHOKINASE 67 U/L (46-171); CREATININE FOR GFR 0.92 MG/DL (0.70-1.30); GLOMERULAR FILTRATION RATE > 60.0 (>49); GLUCOSE, FASTING 100 MG/DL (74-106); MB/CK RELATIVE INDEX 1.79 (< OR =4); SODIUM LEVEL 140 MMOL/L (136-145)
[2024-12-15 09:53] LABS: THYROID STIMULATING HORMONE 1.023 uIU/ML (0.55-4.78); THYROXINE (T4) 7.7 UG/DL (4.5-10.9)
[2024-12-15] MEDS: RACEPINEPHrine 2.25% UD INHAL INH ONE (10:28)
[2024-12-15 10:41] LABS: CK-MB VALUE MASS < 1.0 NG/ML (<3.6); CPK CREATINE PHOSPHOKINASE 59 U/L (46-171); MB/CK RELATIVE INDEX 1.69 (< OR =4)
[2024-12-15] MEDS ORDERED: TIOT18INH INH (11:12)
[2024-12-15] MEDS ORDERED: VENTAER INH (11:12)
[2024-12-15] MEDS ORDERED: NICO14DI6 TD (11:12)
[2024-12-15] MEDS ORDERED: HOME MED LIST COMPLETE! XX SCH (11:15)
[2024-12-15] MEDS: PANTOPRAZOLE 40MG TAB (PROTONIX) PO SCH ×2 (14:05→23:00)
[2024-12-15] MEDS: FUROSEMIDE 100MG/10ML VIAL IV ONE (14:05)
[2024-12-15] MEDS: DOXYCYCLINE HYCLATE 100MG TABLET PO SCH (14:05)
[2024-12-15] MEDS: ATORVASTATIN 20 MG TAB PO SCH (14:06)
[2024-12-15] MEDS: IPRATROPIUM 0.5MG/ALBUTEROL 2.5MG INH SOL UD 3ML (DUONEB) NEB SCH (16:56)
[2024-12-15] MEDS: BUDESONIDE 0.5 MG/2 ML INHALATION SUSPENSION NEB SCH (20:03)
[2024-12-15 20:22] VITALS: BP 142/86; TEMP 98.3; O2SAT 96
[2024-12-15] MEDS ORDERED: dexAMETHasone 20MG/5ML VIAL IV SCH (21:00)
[2024-12-15] MEDS: METOPROLOL TART 25 MG TABLET PO SCH (22:59)
[2024-12-15 23:46] VITALS: BP 150/86; TEMP 98; O2SAT 96
[2024-12-16] VITALS (21 sets, daily range): BP systolic 125–159; BP diastolic 56–73; TEMP 97.3–97.8; O2SAT 87–98
[2024-12-16] MEDS: IPRATROPIUM 0.5MG/ALBUTEROL 2.5MG INH SOL UD 3ML (DUONEB) NEB ONE (01:40)
[2024-12-16 03:43] LABS: ABG BASE EXCESS 2.9 (-2.0-2.0); ABG HCO3 28.8 MMOL/L (22.0-26.0); ABG O2 SATURATION 96.6 % (95.0-99.0); ABG PARTIAL PRESSURE CO2 49.2 mmHg (35.0-45.0); ABG PARTIAL PRESSURE O2 86.7 mmHg (75.0-100.0); ABG STANDARD HCO3 27.1 MMOL/L. (22.0-26.0); ABG TOTAL CO2 30.3 MMOL/L (23.0-31.0); ABG pH (ARTERIAL) 7.385 UNITS (7.350-7.450)
[2024-12-16] MEDS: RACEPINEPHrine 2.25% UD INHAL INH ONE (03:48)
[2024-12-16 04:37] LABS: VENOUS BASE EXCESS 4.6 (-2.0-2.0); VENOUS O2 SATURATION 98.2 % (60.0-80.0); VENOUS PARTIAL PRESSURE CO2 53.5 mmHg (38.0-50.0); VENOUS PARTIAL PRESSURE O2 135.5 mmHg (30.0-50.0); VENOUS PH 7.381 UNITS (7.330-7.430); VENOUS STANDARD HCO3 28.6 MMOL/L; VENOUS TOTAL CO2 32.7 MMOL/L (24.0-28.0)
[2024-12-16 04:46] LABS: BASO % 0.1 % (0.0-1.0); EOS % 0.4 % (0.0-3.0); HEMATOCRIT 38.5 % (42.0-52.0); HEMOGLOBIN 12.5 g/dl (13.5-17.5); LYMPH # 0.8 10^3/uL (1.5-5.0); LYMPH % 10.8 % (24.0-44.0); MEAN CORPUSCULAR HEMOGLOBIN 32.6 pg (27.0-33.0); MEAN CORPUSCULAR HGB CONC 32.5 g/dl (32.0-36.5); MEAN CORPUSCULAR VOLUME 100.3 fl (80.0-96.0); MONO # 0.2 10^3/uL (0.0-0.8); MONO % 2.4 % (2.0-8.0); NEUTROPHILS # 6.5 10^3/uL (1.5-8.5); NEUTROPHILS % 85.9 % (36.0-66.0); PLATELET COUNT, AUTOMATED 180 10^3/uL (150-450); RED BLOOD COUNT 3.84 10^6/uL (4.30-6.10); WHITE BLOOD COUNT 7.5 10^3/uL (4.0-10.0)
[2024-12-16 05:13] LABS: BLOOD UREA NITROGEN 23 MG/DL (9-23); CALCIUM LEVEL 8.7 MG/DL (8.3-10.6); CARBON DIOXIDE LEVEL 32 MMOL/L (20-31); CHLORIDE LEVEL 99 MMOL/L (98-107); CREATININE FOR GFR 1.07 MG/DL (0.70-1.30); GLOMERULAR FILTRATION RATE > 60.0 (>49); GLUCOSE, FASTING 178 MG/DL (74-106); POTASSIUM SERUM 4.2 MMOL/L (3.5-5.1); SODIUM LEVEL 139 MMOL/L (136-145)
[2024-12-16] MEDS: ENOXAPARIN 40MG/0.4ML SYRINGE (J1650 PER 10MG) SC SCH (10:37)
[2024-12-16] MEDS: FUROSEMIDE 40MG/4ML VIAL IV SCH (10:40)
[2024-12-17] VITALS (25 sets, daily range): BP systolic 109–147; BP diastolic 57–74; TEMP 97–98.4; O2SAT 83–97
[2024-12-17] MEDS: LORazepam 2 MG TAB PO PRN (02:44)
[2024-12-17] MEDS ORDERED: chlordiazePOXIDE 25 MG CAP PO SCH (05:00)
[2024-12-17] MEDS: LORazepam 2 MG/ML 1ML VIAL IV STA (05:35)
[2024-12-17] MEDS: OXAZEPAM 10MG CAP PO SCH (07:48)
[2024-12-17 08:02] LABS: BASO % 0.1 % (0.0-1.0); EOS # 0.1 10^3/uL (0.0-0.5); EOS % 0.4 % (0.0-3.0); HEMATOCRIT 38.1 % (42.0-52.0); HEMOGLOBIN 12.3 g/dl (13.5-17.5); LYMPH % 6.7 % (24.0-44.0); MEAN CORPUSCULAR HEMOGLOBIN 33.2 pg (27.0-33.0); MEAN CORPUSCULAR HGB CONC 32.3 g/dl (32.0-36.5); MONO # 0.5 10^3/uL (0.0-0.8); MONO % 3.1 % (2.0-8.0); NEUTROPHILS # 13.5 10^3/uL (1.5-8.5); NEUTROPHILS % 89.2 % (36.0-66.0); PLATELET COUNT, AUTOMATED 212 10^3/uL (150-450); WHITE BLOOD COUNT 15.1 10^3/uL (4.0-10.0)
[2024-12-17 08:20] LABS: ABG BASE EXCESS 1.1 (-2.0-2.0); ABG HCO3 28.1 MMOL/L (22.0-26.0); ABG O2 SATURATION 97.8 % (95.0-99.0); ABG PARTIAL PRESSURE CO2 55.5 mmHg (35.0-45.0); ABG PARTIAL PRESSURE O2 126.4 mmHg (75.0-100.0); ABG STANDARD HCO3 25.4 MMOL/L. (22.0-26.0); ABG TOTAL CO2 29.9 MMOL/L (23.0-31.0); ABG pH (ARTERIAL) 7.323 UNITS (7.350-7.450)
[2024-12-17 08:40] LABS: BLOOD UREA NITROGEN 45 MG/DL (9-23); CALCIUM LEVEL 8.3 MG/DL (8.3-10.6); CARBON DIOXIDE LEVEL 33 MMOL/L (20-31); CHLORIDE LEVEL 102 MMOL/L (98-107); CREATININE FOR GFR 1.18 MG/DL (0.70-1.30); GLOMERULAR FILTRATION RATE > 60.0 (>49); GLUCOSE, FASTING 156 MG/DL (74-106); POTASSIUM SERUM 4.6 MMOL/L (3.5-5.1); SODIUM LEVEL 143 MMOL/L (136-145)
[2024-12-17] MEDS: RACEPINEPHrine 2.25% UD INHAL INH PRN (08:52)
[2024-12-17] MEDS: MULTIVITAMINS/MINERALS THERAP 1 TAB PO SCH (10:03)
[2024-12-17] MEDS: FOLIC ACID 1MG TAB PO SCH (10:03)
[2024-12-17] MEDS: THIAMINE 100 MG TAB PO SCH (10:04)
[2024-12-17] MEDS: NICOTINE 7 MG/24 HR TRANSDERMAL TD SCH (10:05)
[2024-12-17] MEDS: APIXABAN 5 MG TAB (ELIQUIS) PO SCH (21:23)
[2024-12-18] VITALS (28 sets, daily range): BP systolic 130–143; BP diastolic 64–92; TEMP 97.2–98.8; O2SAT 87–100
[2024-12-18 05:52] LABS: EOS # 0.1 10^3/uL (0.0-0.5); EOS % 0.5 % (0.0-3.0); HEMATOCRIT 35.5 % (42.0-52.0); HEMOGLOBIN 11.6 g/dl (13.5-17.5); LYMPH % 8.7 % (24.0-44.0); MEAN CORPUSCULAR HEMOGLOBIN 33.7 pg (27.0-33.0); MEAN CORPUSCULAR HGB CONC 32.7 g/dl (32.0-36.5); MEAN CORPUSCULAR VOLUME 103.2 fl (80.0-96.0); MONO # 0.2 10^3/uL (0.0-0.8); NEUTROPHILS # 9.8 10^3/uL (1.5-8.5); NEUTROPHILS % 87.7 % (36.0-66.0); PLATELET COUNT, AUTOMATED 209 10^3/uL (150-450); RED BLOOD COUNT 3.44 10^6/uL (4.30-6.10); WHITE BLOOD COUNT 11.2 10^3/uL (4.0-10.0)
[2024-12-18 06:04] LABS: BLOOD UREA NITROGEN 45 MG/DL (9-23); CALCIUM LEVEL 8.5 MG/DL (8.3-10.6); CARBON DIOXIDE LEVEL 31 MMOL/L (20-31); CHLORIDE LEVEL 105 MMOL/L (98-107); CREATININE FOR GFR 1.05 MG/DL (0.70-1.30); GLOMERULAR FILTRATION RATE > 60.0 (>49); GLUCOSE, FASTING 122 MG/DL (74-106); POTASSIUM SERUM 4.5 MMOL/L (3.5-5.1); SODIUM LEVEL 145 MMOL/L (136-145)
[2024-12-19] VITALS (16 sets, daily range): BP systolic 128–177; BP diastolic 61–95; TEMP 97.3–98.1; O2SAT 92–97
[2024-12-19 05:33] LABS: EOS # 0.1 10^3/uL (0.0-0.5); EOS % 0.7 % (0.0-3.0); HEMATOCRIT 35.5 % (42.0-52.0); HEMOGLOBIN 11.8 g/dl (13.5-17.5); LYMPH # 1.3 10^3/uL (1.5-5.0); LYMPH % 12.2 % (24.0-44.0); MEAN CORPUSCULAR HEMOGLOBIN 33.6 pg (27.0-33.0); MEAN CORPUSCULAR HGB CONC 33.2 g/dl (32.0-36.5); MEAN CORPUSCULAR VOLUME 101.1 fl (80.0-96.0); MONO # 0.3 10^3/uL (0.0-0.8); MONO % 2.9 % (2.0-8.0); NEUTROPHILS % 83.2 % (36.0-66.0); PLATELET COUNT, AUTOMATED 205 10^3/uL (150-450); RED BLOOD COUNT 3.51 10^6/uL (4.30-6.10); WHITE BLOOD COUNT 10.9 10^3/uL (4.0-10.0)
[2024-12-19 05:56] LABS: BLOOD UREA NITROGEN 43 MG/DL (9-23); CALCIUM LEVEL 8.6 MG/DL (8.3-10.6); CARBON DIOXIDE LEVEL 30 MMOL/L (20-31); CHLORIDE LEVEL 103 MMOL/L (98-107); GLOMERULAR FILTRATION RATE > 60.0 (>49); GLUCOSE, FASTING 119 MG/DL (74-106); POTASSIUM SERUM 4.4 MMOL/L (3.5-5.1); SODIUM LEVEL 142 MMOL/L (136-145)
[2024-12-19] MEDS ORDERED: ELIQ5TAB PO (11:18)
[2024-12-19] MEDS ORDERED: PANT40TA29 PO (11:18)
[2024-12-19] MEDS ORDERED: METO1TAB87 PO (11:18)
[2024-12-19] MEDS ORDERED: PRED20TA PO (11:18)
[2024-12-20] MEDS ORDERED: predniSONE 20 MG TAB PO SCH (09:00)
== END 2024-12-19 13:00 | disposition home or self-care (01) | DRG 140 ==
LOC: M ED 08:15 → M ED INP 12:53 → M PCU 20:22
PROVIDERS: ADMIT Internal Medicine Nephrology; ATTEND Internal Medicine
PROC: 0CJS8ZZ Inspection of Larynx, Via Natural or Artificial Opening Endoscopic (ICD-10-PCS; principal; 2024-12-15)
PROC: B246ZZZ Ultrasonography of Right and Left Heart (ICD-10-PCS; 2024-12-15)
DX: J44.0 Chronic obstructive pulmonary disease with (acute) lower respiratory infection (principal); I50.33 Acute on chronic diastolic (congestive) heart failure; J18.9 Pneumonia, unspecified organism; J38.4 Edema of larynx; I48.0 Paroxysmal atrial fibrillation; R06.1 Stridor; I11.0 Hypertensive heart disease with heart failure; G47.33 Obstructive sleep apnea (adult) (pediatric); E66.9 Obesity, unspecified; F17.200 Nicotine dependence, unspecified, uncomplicated; F10.139 Alcohol abuse with withdrawal, unspecified; J44.1 Chronic obstructive pulmonary disease with (acute) exacerbation; E78.5 Hyperlipidemia, unspecified; K21.9 Gastro-esophageal reflux disease without esophagitis; F41.9 Anxiety disorder, unspecified; G89.29 Other chronic pain; I69.398 Other sequelae of cerebral infarction; J38.3 Other diseases of vocal cords; I35.0 Nonrheumatic aortic (valve) stenosis; Z85.828 Personal history of other malignant neoplasm of skin; Z91.198 Patient's noncompliance with other medical treatment and regimen for other reason; Z79.899 Other long term (current) drug therapy

== ENCOUNTER → 2025-01-09 | Outpatient (CLI) | payer OTHER ==
[~2025-01-09] MED LIST changes: +ELIQ5TAB PO; +ISOVUE-370 76% 100ML VIAL ONE; +METO1TAB87 PO; +NICO14DI6 TD; +TIOT18INH INH
== END ==
LOC: M PLAIMG 12:57
PROVIDERS: ATTEND Family Medicine
DX: R93.89 Abnormal findings on diagnostic imaging of other specified body structures (principal); J91.8 Pleural effusion in other conditions classified elsewhere; J98.4 Other disorders of lung

== ENCOUNTER 2025-03-23 15:33 | Observation (INO) | payer OTHER ==
[~2025-03-23] VITALS: Ht 182.9 cm; Wt 123.0 kg
[~2025-03-23 15:33] MED LIST changes: -ISOVUE-370 76% 100ML VIAL ONE
[2025-03-23 18:29] LABS: ABG O2 SATURATION 95.3 % (95.0-99.0); ABG PARTIAL PRESSURE CO2 52.1 mmHg (35.0-45.0); ABG PARTIAL PRESSURE O2 77.4 mmHg (75.0-100.0); ABG STANDARD HCO3 28.9 MMOL/L. (22.0-26.0); ABG TOTAL CO2 32.6 MMOL/L (23.0-31.0); ABG pH (ARTERIAL) 7.393 UNITS (7.350-7.450)
[2025-03-23 18:33] LABS: MEAN CORPUSCULAR HEMOGLOBIN 33.5 pg (27.0-33.0); MEAN CORPUSCULAR HGB CONC 33.3 g/dl (32.0-36.5); MEAN CORPUSCULAR VOLUME 100.6 fl (80.0-96.0); PLATELET COUNT, AUTOMATED 247 10^3/uL (150-450); RED BLOOD COUNT 3.58 10^6/uL (4.30-6.10); WHITE BLOOD COUNT 7.2 10^3/uL (4.0-10.0)
[2025-03-23 18:55] LABS: ALBUMIN 2.9 G/DL (3.2-5.2); ALKALINE PHOSPHATASE 87 U/L (40-129); ALT/SGPT 31 U/L (7.0-40); AST/SGOT 32 U/L (<34); BILIRUBIN,TOTAL 0.3 MG/DL (0.3-1.2); BLOOD UREA NITROGEN 19 MG/DL (9-23); CALCIUM LEVEL 8.4 MG/DL (8.3-10.6); CARBON DIOXIDE LEVEL 32 MMOL/L (20-31); CHLORIDE LEVEL 104 MMOL/L (98-107); CREATININE FOR GFR 0.88 MG/DL (0.70-1.30); GLOMERULAR FILTRATION RATE > 90.0 (>49); GLUCOSE, FASTING 135 MG/DL (74-106); POTASSIUM SERUM 4.3 MMOL/L (3.5-5.1); SODIUM LEVEL 143 MMOL/L (136-145); TOTAL PROTEIN 6.2 G/DL (5.7-8.2)
[2025-03-23] MEDS ORDERED: LORazepam 2 MG TAB PO PRN (19:35)
[2025-03-23] MEDS: MULTIVITAMINS/MINERALS THERAP 1 TAB PO SCH (20:37)
[2025-03-23] MEDS: FOLIC ACID 1MG TAB PO SCH (20:37)
[2025-03-23] MEDS: THIAMINE 100 MG TAB PO SCH (20:38)
[2025-03-23] MEDS ORDERED: METO25TA4 PO (21:15)
[2025-03-23] MEDS ORDERED: NICO1DIS12 TD (21:15)
[2025-03-23] MEDS ORDERED: FURO20TA2 PO (21:15)
[2025-03-23] MEDS ORDERED: ELIQ5TAB PO (21:15)
[2025-03-23] MEDS ORDERED: FLUT1BLS8 INH (21:15)
[2025-03-23] MEDS ORDERED: PANT-23 PO (21:15)
[2025-03-23] MEDS ORDERED: DULO1CAP5 PO (21:15)
[2025-03-23] MEDS ORDERED: HOME MED LIST COMPLETE! XX SCH (21:20)
[2025-03-23] MEDS ORDERED: ALBUTEROL 90 MCG/ACT 8GM HFA INHALER INH PRN (21:50)
[2025-03-23 21:51] LABS: INR 0.91; PROTHROMBIN TIME 12.6 SECONDS (12.5-14.5)
[2025-03-23 22:08] LABS: CPK CREATINE PHOSPHOKINASE 92 U/L (46-171)
[2025-03-23] MEDS: AUGMENTIN 875 MG TAB PO SCH (22:27)
[2025-03-23] MEDS: APIXABAN 5 MG TAB PO SCH (22:27)
[2025-03-23] MEDS: DOXYCYCLINE HYCLATE 100MG TABLET PO SCH (22:27)
[2025-03-23] MEDS: METOPROLOL TART 25 MG TABLET PO SCH (22:28)
[2025-03-23 22:41] LABS: PROCALCITONIN 0.17 ng/ml
[2025-03-23 22:50] VITALS: BP 151/79; TEMP 98.4; O2SAT 93
[2025-03-23 23:00] VITALS: BP 151/79
[2025-03-23 23:30] VITALS: O2SAT 86
[2025-03-23 23:34] VITALS: O2SAT 93
[2025-03-23] MEDS: ACETAMINOPHEN 325 MG TAB PO PRN (23:46)
[2025-03-24 04:41] VITALS: BP 168/100; TEMP 97.7; O2SAT 95
[2025-03-24 06:14] VITALS: BP 178/80
[2025-03-24 06:30] LABS: HEMOGLOBIN 12.6 g/dl (13.5-17.5); MEAN CORPUSCULAR HGB CONC 32.3 g/dl (32.0-36.5); MEAN CORPUSCULAR VOLUME 102.1 fl (80.0-96.0); PLATELET COUNT, AUTOMATED 247 10^3/uL (150-450); RED BLOOD COUNT 3.82 10^6/uL (4.30-6.10); WHITE BLOOD COUNT 7.2 10^3/uL (4.0-10.0)
[2025-03-24 06:49] LABS: BLOOD UREA NITROGEN 16 MG/DL (9-23); CALCIUM LEVEL 8.8 MG/DL (8.3-10.6); CARBON DIOXIDE LEVEL 34 MMOL/L (20-31); CHLORIDE LEVEL 102 MMOL/L (98-107); GLOMERULAR FILTRATION RATE > 90.0 (>49); GLUCOSE, FASTING 97 MG/DL (74-106); MAGNESIUM LEVEL 1.9 MG/DL (1.8-2.4); POTASSIUM SERUM 4.4 MMOL/L (3.5-5.1); SODIUM LEVEL 143 MMOL/L (136-145)
[2025-03-24 08:00] VITALS: BP_SYST 140; BP_SYST 146; BP_DIAS 74; BP_DIAS 78; TEMP 98.1; O2SAT 90
[2025-03-24] MEDS: ADVAIR HFA 230/21MCG INHALER INH SCH (08:11)
[2025-03-24] MEDS: TIOTROPIUM BROM 2.5MCG/ACTUATION 4GM INH INH SCH (08:11)
[2025-03-24] MEDS: PANTOPRAZOLE 40MG TAB PO SCH (09:35)
[2025-03-24] MEDS: ATORVASTATIN 20 MG TAB PO SCH (09:35)
[2025-03-24 09:36] VITALS: BP 146/78
[2025-03-24] MEDS: FUROSEMIDE 20 MG TAB PO SCH (09:36)
[2025-03-24] MEDS: DULoxetine 30MG CAPSULE PO SCH (09:36)
[2025-03-24] MEDS: NICOTINE 21MG/24HR 1 EA TRANSDERMAL TD SCH (09:37)
[2025-03-24] MEDS ORDERED: AMOX875T2 PO (11:22)
[2025-03-24] MEDS ORDERED: DOXY100T PO (11:22)
[2025-03-24] MEDS: FUROSEMIDE 40MG/4ML VIAL IV ONE (11:23)
[2025-03-24 12:00] VITALS: BP 142/72; TEMP 97.9; O2SAT 88
== END 2025-03-24 13:15 | disposition home or self-care (01) ==
LOC: M ED 15:33 → M ED INP 15:34 → M MSPAV 22:45
PROVIDERS: ADMIT Student in an Organized Health Care Education/Training Program; ATTEND Internal Medicine Nephrology
DX: J18.9 Pneumonia, unspecified organism (principal); B37.9 Candidiasis, unspecified; F10.10 Alcohol abuse, uncomplicated; R29.6 Repeated falls; F17.200 Nicotine dependence, unspecified, uncomplicated; E66.9 Obesity, unspecified; G47.33 Obstructive sleep apnea (adult) (pediatric); I10 Essential (primary) hypertension; E78.5 Hyperlipidemia, unspecified; K21.9 Gastro-esophageal reflux disease without esophagitis; F41.9 Anxiety disorder, unspecified; I67.1 Cerebral aneurysm, nonruptured; I69.398 Other sequelae of cerebral infarction; M54.9 Dorsalgia, unspecified; G89.29 Other chronic pain; S00.83XA Contusion of other part of head, initial encounter; S40.012A Contusion of left shoulder, initial encounter; W07.XXXA Fall from chair, initial encounter; Y92.008 Other place in unspecified non-institutional (private) residence as the place of occurrence of the external cause; R06.02 Shortness of breath; R00.0 Tachycardia, unspecified; J44.9 Chronic obstructive pulmonary disease, unspecified; D64.9 Anemia, unspecified; Z79.899 Other long term (current) drug therapy; Z79.01 Long term (current) use of anticoagulants; Z79.51 Long term (current) use of inhaled steroids
CPT/HCPCS: 36415; 36600; 70450; 71045; 71250; 72125; 73060; 73090; 80048; 80053; 82550; 82803; 83735; 83880; 84145; 84484; 85027; 85610; 85730; 87070; 87077; 87205; 87486; 87581; 87633; 87641; 87798; 93005; 94640; 94660; 96374; 97116; 97161; 99291; J1938

== ENCOUNTER → 2025-05-24 | Outpatient (CLI) | payer OTHER ==
[~2025-05-24] MED LIST changes: +ACET650T61 PO; +DOXY100T PO; +DULO1CAP5 PO; +FLUT1BLS8 INH; +FURO20TA2 PO; +FURO40TA2 PO; +HYDR-3715 PO; +METO25TA4 PO; +NICO1DIS12 TD; +PANT-23 PO
== END ==
LOC: M RAD 10:53
PROVIDERS: ATTEND Physician Assistant
DX: S22.080D Wedge compression fracture of T11-T12 vertebra, subsequent encounter for fracture with routine healing (principal); W18.30XD Fall on same level, unspecified, subsequent encounter

== ENCOUNTER → 2025-05-24 | Outpatient (REF) | payer OTHER ==
[2025-05-24 13:54] LABS: ALT/SGPT 45.0 U/L (7.0-40); AST/SGOT 37.0 U/L (<34); CALCIUM LEVEL 8.8 MG/DL (8.3-10.6); CARBON DIOXIDE LEVEL 26.0 MMOL/L (20-31); CHLORIDE LEVEL 103.0 MMOL/L (98-107); CREATININE FOR GFR 0.97 MG/DL (0.70-1.30); GLOMERULAR FILTRATION RATE 87.7 (>49); POTASSIUM SERUM 4.3 MMOL/L (3.5-5.1); SODIUM LEVEL 142.0 MMOL/L (136-145)
== END ==
LOC: M SFHCDERM 12:12
PROVIDERS: ATTEND Dermatology
DX: Z85.828 Personal history of other malignant neoplasm of skin (principal)

== ENCOUNTER → 2025-05-29 | Outpatient (CLI) | payer OTHER ==
[~2025-05-29] MED LIST changes: +ISOVUE-370 76% 100 ML VIAL As Ordered ONE
== END ==
LOC: M RAD 15:01
PROVIDERS: ATTEND Dermatology
DX: C44.42 Squamous cell carcinoma of skin of scalp and neck (principal)
CPT/HCPCS: 70470; 70491; Q9967

== ENCOUNTER → 2025-06-25 | Outpatient (CLI) | payer OTHER ==
[~2025-06-25] MED LIST changes: -ISOVUE-370 76% 100 ML VIAL As Ordered ONE
== END ==
LOC: M RAD 16:17
PROVIDERS: ATTEND Neurological Surgery
DX: S22.000D Wedge compression fracture of unspecified thoracic vertebra, subsequent encounter for fracture with routine healing (principal)

== ENCOUNTER → 2025-07-05 | Outpatient (CLI) | payer OTHER | LOC: M ONCR 12:47 | PROVIDERS: ATTEND General Practice | DX: C44.42 Squamous cell carcinoma of skin of scalp and neck (principal); L57.0 Actinic keratosis; Z98.890 Other specified postprocedural states; F17.218 Nicotine dependence, cigarettes, with other nicotine-induced disorders; Z72.89 Other problems related to lifestyle; Z79.01 Long term (current) use of anticoagulants; Z79.51 Long term (current) use of inhaled steroids; Z79.899 Other long term (current) drug therapy ==

== ENCOUNTER → 2025-08-17 | Outpatient (CLI) | payer OTHER | LOC: M PLAIMG 10:57 | PROVIDERS: ATTEND Physician Assistant | DX: R91.8 Other nonspecific abnormal finding of lung field (principal); J90 Pleural effusion, not elsewhere classified; I25.10 Atherosclerotic heart disease of native coronary artery without angina pectoris ==

== ENCOUNTER → 2025-08-20 | Outpatient (REF) | payer OTHER ==
[2025-08-20 19:04] LABS: ALT/SGPT 35.0 U/L (7.0-40); AST/SGOT 27.0 U/L (<34); CALCIUM LEVEL 9.2 MG/DL (8.3-10.6); CARBON DIOXIDE LEVEL 30.0 MMOL/L (20-31); CHLORIDE LEVEL 102.0 MMOL/L (98-107); CREATININE FOR GFR 1.0 MG/DL (0.70-1.30); GLOMERULAR FILTRATION RATE 84.6 (>49); POTASSIUM SERUM 4.4 MMOL/L (3.5-5.1); SODIUM LEVEL 141.0 MMOL/L (136-145)
== END ==
LOC: M SFHCADAM 11:58
PROVIDERS: ATTEND Family Medicine
DX: R60.0 Localized edema (principal)

== ENCOUNTER → 2025-09-14 | Outpatient (RCR) | payer OTHER | LOC: M ONCR 08-22 10:56 | PROVIDERS: ATTEND General Practice | DX: Z51.0 Encounter for antineoplastic radiation therapy (principal); C44.42 Squamous cell carcinoma of skin of scalp and neck ==